=== PATIENT | female | born 1995 | race Caucasian/White ===

== ENCOUNTER 2022-03-12 17:46 | Emergency (ER) | payer OTHER, SELFPAY ==
--- NOTE | 2022-03-12 | ECG_ITS ---
Test Reason : palpatations Blood Pressure : / mmHG Vent. Rate : 118 BPM Atrial Rate : 118 BPM P-R Int : 154 ms QRS Dur : 078 ms QT Int : 332 ms P-R-T Axes : 044 034 013 degrees QTc Int : 465 ms Sinus tachycardia Cannot rule out Anterior infarct , age undetermined - could be related to body habitus and lead placement. Abnormal ECG No previous ECGs available Referred By: Generic ED Physician Electronically Signed By:SADE MASSEY
[2022-03-12 18:09] VITALS: BP 151/99; PULSE 127; RESP 16; TEMP 36.6; O2SAT 98; BMI 33.5
[2022-03-12 18:38] LABS: MANUAL DIFF FLAG NO
[2022-03-12 18:46] LABS: Appearance Urine CLEAR; Color Urine YELLOW; Glucose Urine UA NEG (NEG); Leukocyte Esterase Urine NEG (NEG); Nitrite Urine NEG (NEG); PH 6.5 (5.0-8.0); UACC Culture Trigger NO; Urine Blood 3+ (NEG); Urine Ketones NEG (NEG); Urine Protein NEG (NEG-TRACE)
[2022-03-12 18:48] LABS: Basophils Percent Auto 0.3 % (0-2); Eosinophils Percent Auto 0.5 % (0-4); Hematocrit 38.2 % (37.0-47.0); Imm Gran Abs Auto 0.02 X10*3/uL (0.00-0.03); Imm Gran Pct Auto 0.3 % (0.0-0.4); Lymphocytes Percent Auto 29.7 % (20-40); Mean Corpuscular Hemoglobin 30.5 pg (27.0-33.0); Mean Corpuscular Volume 89.7 fL (80.0-98.0); Mean Platelet Volume 8.8 fL (9.4-12.3); Monocytes Absolute Auto 0.6 X10*3/uL (0.1-1.2); Monocytes Percent Auto 8.5 % (2-11); Neutrophils Percent Auto 60.7 % (45-73); Platelet Count 212 X10*3/uL (160-400); Red Blood Count 4.26 X10*6/uL (4.20-5.50); Red Cell Distribution Width 12.1 % (11.0-16.0); White Blood Count 6.6 X10*3/uL (4.8-10.8)
[2022-03-12 18:55] LABS: Ethanol 81 mg/dL
[2022-03-12 18:56] LABS: Anion Gap 15 (12-20); Blood Urea Nitrogen 8 mg/dL (9-16); Calcium 8.8 mg/dL (8.4-10.2); Carbon Dioxide 23 mmol/L (22-29); Chloride 103 mmol/L (96-108); Creatinine Clr Calc Pharmacy 115.7; Estimated Glomerular Filt Rate > 60; Glucose Random 102 mg/dL (60-115); Potassium 3.9 mmol/L (3.3-5.1); Sodium 137 mmol/L (135-145)
[2022-03-12 18:57] LABS: Amphetamine Screen Urine Not Detected (Not Detect); Barbiturates, Urine Not Detected (Not Detect); Benzodiazepines Screen Urine Not Detected (Not Detect); Cannabinoid Screen Urine Not Detected (Not Detect); Cocaine Screen Urine Not Detected (Not Detect); Fentanyl, urine Not Detected (Not Detect); Opiate Screen Urine Not Detected (Not Detect); Phencyclidine Screen Urine Not Detected (Not Detect)
[2022-03-12 19:02] LABS: Bacteria Urine 1+ /LPF; Squamous Epithelial Cell Urine TRACE /LPF; WBC Urine 0-2 /HPF (0-4)
[2022-03-12 19:05] LABS: UPreg QC Valid YES; Urine Pregnancy NEGATIVE (NEGATIVE)
[2022-03-12 19:53] VITALS: BP 166/94; PULSE 111; RESP 17; O2SAT 97
--- NOTE | 2022-03-12 19:55 | ED.ALCOHOL ---
HPI - Alcohol General Chief Complaint: ETOH/Substance Use Stated Complaint: alcohol withdrawl Source: patient Mode of arrival: ambulatory Limitations: no limitations History of Present Illness HPI narrative: 26-year-old female presents for alcohol withdrawal symptoms. States that she drinks about a sleeve of nips per day. She does have history of EtOH seizures in the past. MD complaint: alcohol intoxication and alcohol withdrawal Last drink: Hours (ago) Amount of alcohol consumed: Last drink 02:00 Chronic alcohol use: Yes Previous visits for alcohol intoxication: Yes Recent trauma: No Associated symptoms: tremors Treatments prior to arrival: none Related Data Previous Rx's Medication Instructions Recorded disulfiram 250 mg tablet 250 mg PO DAILY #30 tab 03/12/22 lorazepam 2 mg tablet (Ativan) 2 mg PO TID PRN 3 Days #9 tab 03/12/22 Allergies Allergy/AdvReac Type Severity Reaction Status Date / Time No Known Allergies Allergy Verified 03/12/22 18:13 Review of Systems Review of Systems: Constitutional: No Fever, No Chills ENT/Mouth: No sore throat, No Rhinorrhea Eyes: No Eye Pain, No Swelling, No Redness Cardiovascular: No Chest Pain, No SOB Respiratory: No Cough, No Sputum Gastrointestinal: No Nausea, No Vomiting, No Diarrhea, No abdominal Pain Genitourinary: No Dysuria, No Hematuria Musculoskeletal: No joint pain, No Myalgias, No Joint Swelling Skin: No Skin Lesions, No rash Neuro: No Weakness, No Numbness, No Loss of Consciousness, No Dizziness, No Headache Psych: Positive alcohol withdrawal, Positive Anxiety, No Depression, No SI/HI/AH/VH Heme/Lymph: No Bruising, No Bleeding,No Lymphadenopathy Endocrine: No Polyuria, No Polydipsia Yes all other systems are reviewed and are negative [facility] Past Medical History Attestation statement: The following information was validated with the patient. Source: old records reviewed Medical History No known health problems Social History Social History Advance Directives: No Advance Directives Information Provided: No Physical Exam ED Vital Signs: Vital Signs - 24 hr 03/12/22 18:09 03/12/22 19:53 03/12/22 20:07 Temperature 97.8 F Pulse Rate 127 H 111 H 120 H Respiratory Rate 16 17 28 H Blood Pressure 151/99 H 166/94 H 166/94 H Pulse Oximetry 98 97 99 03/12/22 20:25 03/12/22 21:09 Temperature Pulse Rate 117 H 116 H Respiratory Rate 20 22 H Blood Pressure 147/92 H 140/92 H Pulse Oximetry 98 97 BMI result Body Mass Index 33.5 Appearance: Alert. Oriented X3. Moderate distress. Tremors. Eyes: Pupils equal, round and reactive to light. Sclera nonicteric. ENT: Pharynx normal. Moist mucous membranes. Neck: Normal inspection. Neck supple. CVS: Normal heart rate and rhythm. Pulses normal. Respiratory: No respiratory distress. Breath sounds normal. Abdomen: Soft and nontender. Skin: Skin warm and dry. Normal skin color. Normal skin turgor. Extremities: No lower extremity edema. Gait well-balanced well coordinated. Neuro: No motor deficit. No sensory deficit. Cranial nerves 2-12 intact. Course Course Course Narrative: 26-year-old female presents requesting assistance stop drinking. Has had alcohol withdrawal seizures in the past. Was hospitalized in January for EtOH withdrawals. She is not interested in attending a detox program, states that is too traumatizing for her. CIWA score is 9 at time, will order Ativan 2 mg p.o.. Will discuss plan with volleyball assistant coach for possible outpatient treatment programs. 20:01 discussion with volleyball assistant coach, they will discuss options with patient. 20:59 plan is to discharge home, patient does have outpatient information for detox. Patient does understand medication regimen, understands that if symptoms persist or worsen that she should return to the emergency department. Patient verbalized understanding of and agrees to plan of care to discharge home. Verbalized understanding of signs and symptoms indicating need for emergent intervention MDM - Alcohol Differential Diagnosis Differential diagnosis: Likely alcohol dependence and alcohol withdrawal syndrome Medical Records Attestation: I reviewed the patient's medical records. Lab Data Attestation: I reviewed the patient's lab results. Result diagrams: 03/12/22 18:31 03/12/22 18:31 Labs: Lab Results 03/12/22 03/12/22 03/12/22 Range/Units 18:31 18:31 18:31 WBC 6.6 (4.8-10.8) X10*3/uL RBC 4.26 (4.20-5.50) X10*6/uL Hgb 13.0 (12.0-16.0) g/dl Hct 38.2 (37.0-47.0) % MCV 89.7 (80.0-98.0) fL MCH 30.5 (27.0-33.0) pg MCHC 34.0 (31.0-35.0) g/dl RDW 12.1 (11.0-16.0) % Plt Count 212 (160-400) X10*3/uL MPV 8.8 L (9.4-12.3) fL Immature Gran % (Auto) 0.3 (0.0-0.4) % Neut % (Auto) 60.7 (45-73) % Lymph % (Auto) 29.7 (20-40) % Victoria % (Auto) 8.5 (2-11) % Eos % (Auto) 0.5 (0-4) % Baso % (Auto) 0.3 (0-2) % Lymph # (Auto) 2.0 (1.2-4.9) X10*3/uL Victoria # (Auto) 0.6 (0.1-1.2) X10*3/uL Eos # (Auto) 0.0 (0.0-0.4) X10*3/uL Baso # (Auto) 0.0 (0.0-0.2) X10*3/uL Abs Immat Gran (auto) 0.02 (0.00-0.03) X10*3/uL Absolute Neuts (auto) 4.0 (2.0-8.3) x10*3/uL Absolute Nucleated RBC 0.000 (0.0-0.012) X10*3/uL Nucleated RBC % (auto) 0.0 (0.0-0.2) /100WBC Sodium 137 (135-145) mmol/L Potassium 3.9 (3.3-5.1) mmol/L Chloride 103 (96-108) mmol/L Carbon Dioxide 23 (22-29) mmol/L Anion Gap 15 (12-20) BUN 8 L (9-16) mg/dL Creatinine 0.72 (0.5-1.4) mg/dL Estim Creat Clear Calc 115.7 Estimated GFR > 60 Random Glucose 102 (60-115) mg/dL Calcium 8.8 (8.4-10.2) mg/dL Urine Color Urine Appearance Urine pH (5.0-8.0) Ur Specific [place] (1.005-1.025) Urine Protein (NEG-TRACE) MG/DL Urine Glucose (UA) (NEG) MG/DL Urine Ketones (NEG) MG/DL Urine Blood (NEG) Urine Nitrite (NEG) Ur Leukocyte Esterase (NEG) Urine RBC (0) /HPF Urine WBC (0-4) /HPF Ur Squamous Epith Cells /LPF Urine Bacteria /LPF Urine Test (NEGATIVE) Urine Opiates Screen (Not Detect) Urine Fentanyl Screen (Not Detect) Ur Barbiturates Screen (Not Detect) Ur Phencyclidine Scrn (Not Detect) Ur Amphetamines Screen (Not Detect) U Benzodiazepines Scrn (Not Detect) Urine Cocaine Screen (Not Detect) U Marijuana (THC) Screen (Not Detect) Ethyl Alcohol 81 mg/dL 03/12/22 03/12/22 03/12/22 Range/Units 18:31 18:31 18:31 WBC (4.8-10.8) X10*3/uL RBC (4.20-5.50) X10*6/uL Hgb (12.0-16.0) g/dl Hct (37.0-47.0) % MCV (80.0-98.0) fL MCH (27.0-33.0) pg MCHC (31.0-35.0) g/dl RDW (11.0-16.0) % Plt Count (160-400) X10*3/uL MPV (9.4-12.3) fL Immature Gran % (Auto) (0.0-0.4) % Neut % (Auto) (45-73) % Lymph % (Auto) (20-40) % Victoria % (Auto) (2-11) % Eos % (Auto) (0-4) % Baso % (Auto) (0-2) % Lymph # (Auto) (1.2-4.9) X10*3/uL Victoria # (Auto) (0.1-1.2) X10*3/uL Eos # (Auto) (0.0-0.4) X10*3/uL Baso # (Auto) (0.0-0.2) X10*3/uL Abs Immat Gran (auto) (0.00-0.03) X10*3/uL Absolute Neuts (auto) (2.0-8.3) x10*3/uL Absolute Nucleated RBC (0.0-0.012) X10*3/uL Nucleated RBC % (auto) (0.0-0.2) /100WBC Sodium (135-145) mmol/L Potassium (3.3-5.1) mmol/L Chloride (96-108) mmol/L Carbon Dioxide (22-29) mmol/L Anion Gap (12-20) BUN (9-16) mg/dL Creatinine (0.5-1.4) mg/dL Estim Creat Clear Calc Estimated GFR Random Glucose (60-115) mg/dL Calcium (8.4-10.2) mg/dL Urine Color YELLOW Urine Appearance CLEAR Urine pH 6.5 (5.0-8.0) Ur Specific [place] 1.010 (1.005-1.025) Urine Protein NEG (NEG-TRACE) MG/DL Urine Glucose (UA) NEG (NEG) MG/DL Urine Ketones NEG (NEG) MG/DL Urine Blood 3+ H (NEG) Urine Nitrite NEG (NEG) Ur Leukocyte Esterase NEG (NEG) Urine RBC 1-4 (0) /HPF Urine WBC 0-2 (0-4) /HPF Ur Squamous Epith Cells TRACE /LPF Urine Bacteria 1+ /LPF Urine Test NEGATIVE (NEGATIVE) Urine Opiates Screen Not Detected (Not Detect) Urine Fentanyl Screen Not Detected (Not Detect) Ur Barbiturates Screen Not Detected (Not Detect) Ur Phencyclidine Scrn Not Detected (Not Detect) Ur Amphetamines Screen Not Detected (Not Detect) U Benzodiazepines Scrn Not Detected (Not Detect) Urine Cocaine Screen Not Detected (Not Detect) U Marijuana (THC) Screen Not Detected (Not Detect) Ethyl Alcohol mg/dL ECG Data ECG #1: Attestation: I personally reviewed and interpreted this ECG as follows: ECG interpretation date: 03/12/22 ECG interpretation time: 18:13 Prior ECG tracings: not available for review Interpretation: Vent. rate 118 BPM ND interval 154 ms QRS duration 78 ms QT/QTc 332/465 ms P-R-T axes 44 34 13 Sinus tachycardia Cannot rule out Anterior infarct , age undetermined Abnormal ECG No previous ECGs available Discharge Plan Discharge Clinical Impression: Alcohol withdrawal syndrome Patient Disposition: Home, Self-Care Instructions: Alcohol Withdrawal (ED) Additional Instructions: Please follow-up with outpatient detox. Thank you for choosing this emergency department for evaluation. Please follow-up with primary care physician as needed. Return to the emergency department for any new, concerning, or worsening symptoms. Prescriptions: New disulfiram 250 mg tablet 250 mg PO DAILY Qty: 30 0RF lorazepam [Ativan] 2 mg tablet 2 mg PO TID PRN (Reason: alcohol withdrawal) 3 Days Qty: 9 0RF Interventions: ED Discharge Assessment Last Done: 03/12/22 21:17 Discharge Date/Time: 03/12/22 21:20
[2022-03-12] MEDS: LORazepam 1 MG TABLET 2 MG PO ×2 (20:05→21:11)
[2022-03-12 20:07] VITALS: BP 166/94; PULSE 120; RESP 28; O2SAT 99
--- NOTE | 2022-03-12 20:23 | PC.NURSE ---
report received from DOLLY Hancock. pt is alert and oriented. pt on continuos cardiac monitoring. denies any chest pain or sob.
[2022-03-12 20:25] VITALS: BP 147/92; PULSE 117; RESP 20; O2SAT 98
--- NOTE | 2022-03-12 20:58 | MHC.RECOVSUP ---
? Reason for consult:Recovery Support o Current location: ED16? o Identified substance use concern:AUD ? - Withdrawal - Support ? ?Intervention: o MAT started or to be started o Community resources provided o Harm reduction discussion ? Plan: o Referral to [facility] ? Additional information: A patient consultation with Nurse Practitioner, Kisha Gtz was conducted before point of contact was made. Bridget is a 26 year old female with a history of AUD, living with her parents and currently drinking a half a gallon of hard liquor daily. Candi shafferrena was in the room, I kindly asked him to give us privacy and he obliged. Bridget then described her untreated alcoholism as anxiety driven filled with shame and is uncontrollable once she picks up that first drink. Patient lost her job during the pandemic and her drinking increased. Bridget is experiencing tremors at this time along with anxiety, physically has no energy and disclosed that she had a seizure last year from detoxing without medical assistance. Patient isn't interested in entering a detox or treatment facility due to a past experience at [facility] so we discussed her options and narrowed down a few solutions along with strategies for harm reduction. Bridget decided on a referral for [employer] with [facility], a referral for [facility] and a meeting list for AA in the [place] area including community resources to [facility]. A follow up will be made from the referral of services.
[2022-03-12 21:09] VITALS: BP 140/92; PULSE 116; RESP 22; O2SAT 97
== END 2022-03-12 21:20 | disposition home or self-care (01) ==
PROVIDERS: Emergency Provider Emergency Medicine
DX: F10.239 Alcohol dependence with withdrawal, unspecified (principal); Y90.9 Presence of alcohol in blood, level not specified
CPT/HCPCS: 36415; 80048; 80307; 81001; 81025; 82077; 85025; 93005; 99284; 99285

== ENCOUNTER 2022-06-10 08:25 | Outpatient (REF) | payer OTHER, SELFPAY ==
[2022-06-10 11:39] LABS: Monotest Negative (Negative)
== END 2022-06-10 08:26 | disposition home or self-care (01) ==
LOC: HO.HMGCLDS 08:25
PROVIDERS: Visit Provider Physician Assistant
DX: J02.9 Acute pharyngitis, unspecified (principal); T78.40XA Allergy, unspecified, initial encounter
CPT/HCPCS: 36415; 86308

== ENCOUNTER 2023-09-25 08:29 | Outpatient (REF) | payer OTHER, SELFPAY ==
[2023-09-25 11:59] LABS: Alanine Aminotransferase 160 U/L (0-31); Albumin Level 4.4 g/dL (3.5-5.0); Alkaline Phosphatase 63 U/L (39-117); Aspartate Amino Transferase 165 U/L (5-31); Bilirubin Direct 0.2 mg/dL (0.0-0.5); Bilirubin Total 0.3 mg/dL (0.0-1.0); Total Protein 7.3 g/dL (6.5-8.0)
[2023-09-25 12:02] LABS: T4 Thyroxine 8.8 ug/dL (4.5-12.0); Thyroid Stimulating Hormone 1.69 uIU/mL (0.32-4.0)
[2023-09-26 11:18] LABS: Triiodothyronine T3 Total 180 ng/dL (76-181)
== END 2023-09-25 08:30 | disposition home or self-care (01) ==
LOC: HO.HMGCLDS 08:29
PROVIDERS: PCP Internal Medicine; Visit Provider Physician Assistant
DX: Z13.89 Encounter for screening for other disorder (principal)
CPT/HCPCS: 36415; 80076; 84436; 84443; 84480

== ENCOUNTER 2025-09-17 12:46 | Inpatient (IN) | payer OTHER, SELFPAY ==
--- NOTE | ~2025-09-17 | XR_ITS ---
CLINICAL HISTORY: dyspnea Chest Radiographs, 2 views Comparison: None available Findings: No cardiomegaly. Normal mediastinal contours. No pneumothorax. No opacity. No pleural effusion. No acute findings in the upper abdomen. No acute fracture. Impression: No acute findings. This document has been electronically signed by: Desire Avelar MD on 09/18/2025 13:09:52
--- NOTE | ~2025-09-17 | CT_ITS ---
CLINICAL HISTORY: chets pain elevated ddimer CTA chest with 3-D postprocessing Comparison: CR - XR CHEST 2V - 09/18/25 12:09 EST Findings: Study quality is adequate for the diagnosis of pulmonary embolism. No pulmonary embolism. Heart size within normal limits. RV/LV ratio is normal. No calcified coronary artery disease. No aortic dissection or aneurysm. No calcified atherosclerotic disease. No lymphadenopathy. No pulmonary pathology. No pneumothorax or pleural effusion. No acute osseous or soft tissue abnormality. No acute pathology in the imaged portion of the upper abdomen. Impression: No pulmonary embolism or other acute findings. This document has been electronically signed by: Desire Avelar MD on 09/18/2025 16:33:34
[2025-09-17 12:46] VITALS: BP 132/102; PULSE 132; O2SAT 95
[2025-09-17 12:47] VITALS: BP 132/105; PULSE 128; RESP 18; TEMP 37.1; O2SAT 96; BMI 34.0
--- NOTE | 2025-09-17 12:53 | ECG_ITS ---
Test Reason : ETOH W/D Blood Pressure : */* mmHG Vent. Rate : 116 BPM Atrial Rate : 116 BPM P-R Int : 152 ms QRS Dur : 74 ms QT Int : 332 ms P-R-T Axes : 43 45 25 degrees QTcB Int : 461 ms Sinus tachycardia Otherwise normal ECG When compared with ECG of 12-Mar-2022 18:13, No significant change was found Referred By: Flores Michelle Electronically Signed By: SADE MASSEY
[2025-09-17 13:09] LABS: MANUAL DIFF FLAG NO
[2025-09-17 13:11] LABS: Hematocrit 44.7 % (37.0-47.0); Hemoglobin 15.8 g/dl (12.0-16.0); Imm Gran Abs Auto 0.02 X10*3/uL (0.00-0.03); Imm Gran Pct Auto 0.2 % (0.0-0.4); Lymphocytes Absolute Auto 2.3 X10*3/uL (1.2-4.9); Mean Corpuscular HGB Conc 35.3 g/dl (31.0-35.0); Mean Corpuscular Hemoglobin 31.3 pg (27.0-33.0); Mean Corpuscular Volume 88.5 fL (80.0-98.0); NRBC Abs Auto 0.000 X10*3/uL (0.0-0.012); NRBC Pct Auto 0.0 /100WBC (0.0-0.2); Platelet Count 264 X10*3/uL (160-400); Red Blood Count 5.05 X10*6/uL (4.20-5.50); White Blood Count 8.2 X10*3/uL (4.8-10.8)
[2025-09-17 13:13] LABS: Appearance Urine Clear; Glucose Urine UA Negative (Negative); PH 6.0 (5.0-9.0); Specific Gravity - Urine 1.010 (1.005-1.025); UMIC TRIGGER UACC YES
[2025-09-17] MEDS: diazePAM 10 MG/2 ML CARTRIDGE 5 MG IVPUSH (13:13)
[2025-09-17 13:24] LABS: Cannabinoid Screen Urine Not Detected (Not Detect)
[2025-09-17] MEDS: PHENobarbitaL sodium 130 MG/ML IM ONCE 230 MG IM (13:29)
[2025-09-17 13:38] LABS: Alanine Aminotransferase 32 U/L (0-31); Albumin Level 4.7 g/dL (3.5-5.0); Alkaline Phosphatase 79 U/L (39-117); Anion Gap 18 (12-20); Aspartate Amino Transferase 68 U/L (5-31); Blood Urea Nitrogen 8 mg/dL (9-16); Calcium 8.1 mg/dL (8.4-10.2); Carbon Dioxide 20 mmol/L (22-29); Chloride 105 mmol/L (96-108); Creatinine Clr Calc Pharmacy 134.1; Estimated Glomerular Filt Rate > 60; Magnesium 2.3 mg/dL (1.6-2.6); Potassium 4.0 mmol/L (3.3-5.1); Sodium 139 mmol/L (135-145); Total Protein 7.6 g/dL (6.5-8.0)
--- OUTSIDE RECORDS SUMMARY | 2025-09-17 13:45 | XMS_ITS | Encounter Summary ---
Author Organization [facility] Address [address] [place] [phone] Phone Care Team Providers Care Master Printer Name Role Phone Vane Henderson MD Primary Care Provider [phone] Reason for Visit * Reason Comments Med Refill Encounter Details Date Type Department Care Team ([facility] Contact Info) Description 09/05/2018 Refill [facility] [address] [place] [address] RANJEET Nicole [phone] Vane Henderson MD [address] [place], [place] [phone] Encounter for surveillance of contraceptive pills Social History Tobacco Use Types Packs/Day Years Used Date Smoking Tobacco: Former Comments:Former Smoker Comments Unknown Sex and Gender Information Value Date Recorded Sex Assigned at Not on file Legal Sex Female 6:17 PM EDT Gender Identity Not on file Sexual Orientation Straight 01/02/2021 2: 29 PM EST documented as of this encounter Plan of Treatment Not on file documented as of this encounter Visit Diagnoses Diagnosis Encounter for surveillance of contraceptive pills documented in this encounter Care Teams Master Printer Relationship Specialty Start Date End Date Vane Henderson MD PCP - General 03/25/18 documented as of this encounter
--- OUTSIDE RECORDS SUMMARY | 2025-09-17 13:45 | XMS_ITS | Encounter Summary ---
Author Organization [facility] Address [address] [place] [phone] Phone Care Team Providers Care Mailroom Coordinator Name Role Phone Vane Henderson MD Primary Care Provider [phone] Reason for Visit * Reason Comments Med Refill Encounter Details Date Type Department Care Team ([facility] Contact Info) Description 09/27/2018 Refill [facility] [address] [place] [address] RANJEET Nicole [phone] Vane Henderson MD [address] [place], [place] [phone] Encounter for surveillance of contraceptive pills Social [...] pills documented in this encounter Care Teams Mailroom Coordinator Relationship Specialty Start Date End Date Vane Henderson MD PCP - General 03/25/18 documented as of this encounter
--- OUTSIDE RECORDS SUMMARY | 2025-09-17 13:45 | XMS_ITS | Encounter Summary ---
Author Organization [facility] Address [address] [place] [phone] Phone Care Team Providers Care Dietetic Tech Name Role Phone Vane Henderson MD Primary Care Provider [phone] Reason for Visit * Reason Comments Med Refill Encounter Details Date Type Department Care Team ([facility] Contact Info) Description 05/21/2020 Refill [facility] [address] [place] [address] [place] [phone] Paul Nieto MD [address] [place] [address] [place] [phone] Anxiety with depression Social History Tobacco Use Types Packs/Day Years Used Date Smoking Tobacco: Former Smokeless Tobacco: Never Comments:Former Smoker Hunger/Food Answer Date Recorded No 01/01/2019 Stable Housing Answer Date Recorded No 11/20/2019 Transportation Concerns Answer Date Rec orded No 01/01/2019 Hazards in Home Answer Date Recorded No 01/01/2019 Financing Utilities Answer Date Recorde d No 01/01/2019 Safety at Home Answer Date Recorded No 01/01/2019 Outside Support Answer Date Recorded No 01/01/2019 Understanding Health Concerns Answer Da te Recorded No 01/01/2019 Financing Health Concerns Answer Date R ecorded No 01/01/2019 Missing School or Work Answer Date Jose rded No 01/01/2019 Comments No Sex and Gender Information Value Date Recorded Sex Assigned at Not on file Legal Sex Female 6:17 PM EDT Gender Identity Not on file Sexual Orientation Straight 01/02/2021 2: 29 PM EST documented as of this encounter Plan of Treatment Not on file documented as of this encounter Visit Diagnoses Diagnosis Anxiety with depression documented in this encounter Care Teams Dietetic Tech Relationship Specialty Start Date End Date Vane Henderson MD PCP - General 03/25/18 documented as of this encounter
--- OUTSIDE RECORDS SUMMARY | 2025-09-17 13:45 | XMS_ITS | Clinical Summary ---
Author Organization [facility] Address [address] [place] [phone] Phone Care Team Providers Care Microbiology Technician Name Role Phone Vane Hednerson MD Primary Care Provider [phone] Allergies No known active allergies Medications amLODIPine 5 MG tabletIndications:H ypertension, unspecified type Take 1 tablet (5 mg total) by mouth daily. 30 tablet 6 2 Active traZODone 50 MG tabletIndications:I nsomnia, unspecified type Take 1 tablet (50 mg total) by mouth nightly. 30 tablet 6 2 Active hydrOXYzine 25 MG tabletIndications:A nxiety with depression Take 1 tablet (25 mg total) by mouth every 6 (six) hours as needed for anxiety. 30 tablet 6 2 Active sertraline 50 MG tabletIndications:A nxiety with depression Take 1 tablet (50 mg total) by mouth once daily. 30 tablet 6 2 Active norgestimate-ethiny l estradiol (Sprintec 28) 0.25-35 MG-MCG per tabletIndications:C ounseling for control, oral contraceptives Take 1 tablet by mouth daily. 84 tablet 4 2 Active Active Problems Problem Noted Date Diagnosed Date Alcohol use 11/12/2021 Alcohol dependence with withdrawal with complica tion 11/12/2021 Depression with anxiety 11/12/2021 Concussion with no loss of consciousness 018 Overview (11/20/2018): Concussion without LOC (850.0) Onset: 03/31/2018 Added by: Elizabeth Cobos Dysthymic disorder 02/01/2013 Overview (11/20/2018): Anxiety with depression (300.4) Onset: 02/01/2013 Added by: Vane Henderson Immunizations Immunization Administration Dates Next Due DTaP 5 02/22/2003, 9,03/17/1998,02/13,1997 HPV Vaccine 9 Valent 02/27/2016,10/24/2015,08/22 Hep A, ped/adol 07/22/2014,07/06/2013 Hep B, ped/adol 04/17/1998,1997,1997 Hib (PRP-T) 02/07/1999, 8,02/13/1998,12/16 IPV 02/22/2003, 9,02/13/1998,12/16 Influenza, injectable, quadrivalent 11/22/2019 Influenza, injectable, quadr ivalent, preservative free 11/19/2018,11/06/2017,09/10/2016,08/22,07/22/2014 Influenza, injectable, trivalent 08/17/2011 Influenza, injectable, triva lent, preservative free 09/25/2013,08/08/2012 MMR 02/22/2003,10/24/1998 Meningococcal Conj (Menactra) MCV4P 07/22/2014,1 01/08/2008 Tdap 11/19/2018,11/07/2008 Varicella 11/07/2008,10/24/1998 Family History Medical History Relation Name Comments No Known Problems Father Rob No Known Problems Mother Amelia Diabetes Sister Domonique Relation Name Status Comments Father Rob Alive Mother Amelia Alive Sister Domonique Alive Social History Tobacco Use Types Packs/Day Years Used Date Smoking Tobacco: Former Smokeless Tobacco: Never Comments:Former Smoker Hunger/Food Answer Date Recorded In the last 12 months, did y ou or your family ever eat less than you felt you should because there wasn't enough money for food? No 01/15/2022 Stable Housing Answer Date Recorded Are you worried that in the next 2 months you may not have stable housing? No 01/15/2022 Transportation Concerns Answer Date Rec orded In the last 12 months, have you or your family ever had to go without healthcare because you didn't have a way to get there? No 01/15/2022 Hazards in Home Answer Date Recorded Think about the place you li ve. Do you have problems with any of the following? Pests (mice or roaches), mold, no/not working smoke detectors, water leaks, no window guards. No 2021 Financing Utilities Answer Date Recorde d In the last 12 months, has t he electric, gas, oil, or water company threatened to shut off your services in your home? No 01/15/2022 Safety at Home Answer Date Recorded Are you or your family worried about feeling saf e in your home? No 01/15/2022 Outside Support Answer Date Recorded Do you feel that you need mo re support from other people or programs to help you care for yourself or your family? No 01/15/2022 Understanding Health Concerns Answer Da te Recorded Do you need help understandi ng your or your child's healthcare needs (diagnosis, medications, plan, etc.)? No 01/15/2022 Financing Health Concerns Answer Date R ecorded In the last 12 months, was t here a time when your child needed to see a doctor or get medications or supplies but could not because of cost? No 01/15/2022 Missing School or Work Answer Date Jose rded Did you or your child miss s chool or work because of a health problem that could have been avoided? No 01/15/2022 Comments No Sex and Gender Information Value Date Recorded Sex Assigned at Not on file Legal Sex Female 6:17 PM EDT Gender Identity Not on file Sexual Orientation Straight 01/02/2021 2: 29 PM EST Last Filed Vital Signs Vital Sign Reading Time Taken Comments Blood Pressure 122/78 01/15/2022 12:46 PM EST Pulse 103 01/15/2022 12:46 PM EST Temperature 36.4 C (97.5 F) 01/15/2022 12:46 PM EST Respiratory Rate - - Oxygen Saturation 99% 02/15/2021 2:15 PM EDT Inhaled Oxygen Concentration - - Weight 77.3 kg (170 lb 6.4 oz) 01/15/2022 12:46 PM EST Height 156.8 cm (5' 1.75 ) 01/15/2022 12:[address] Body Mass Index 31.42 01/15/2022 12:46 PM EST Plan of Treatment Health Maintenance Due Date Last Done Comments Influenza Vaccines (#1) 2025 11/02/20, 11/22/2019, 11/19/2018, Additional history exists COVID-19 Vaccine ( season) 2025 DTaP,Tdap,and Td Vaccines (8 - Td or Tdap) 11/19/2028 11/19/2018, 11/07/2008, 02/22/2003, Additional history exists Hepatitis B Vaccines Completed 04/17/1998, 1997, 1997 HIB Vaccines Completed 02/07/1999, 11/1997, 02/13/1998, Additional history exists IPV Vaccines Completed 02/22/2003, 12/1998, 02/13/1998, Additional history exists MMR Vaccines Completed 02/22/2003, 10/24/1998 Varicella Vaccines Completed 11/07/2008, 10/24/1998 Hepatitis A Vaccines Completed 07/22/2014, 07/06/20 13 Meningococcal Vaccine Completed 07/22/2014, 008 HPV Vaccines Completed 02/27/2016, 06/2015, 08/22/2015 Men B Vaccine Aged Out No longer elig ible based on patient's age to complete this topic Pneumococcal Vaccine Aged Out No long er eligible based on patient's age to complete this topic Procedures * Due to [place] state law, this organization might not be sharing sensitive test results. Procedure Name Priority Date/Time Associated Diagnosis Comments CHLAMYDIA GC AMP PROBE Routine 01/15/2022 2:26 PM EST Well adult exam from Last 3 Months or Most Recently Relevant to Health Maintenance Results * Due to [place] state law, this organization might not be sharing sensitive test results. * CHLAMYDIA GC AMP PROBE (01/15/2022 2:26 PM EST) Chlamydia Trachomatis, Amplified NEGATIVE (NEG) [facility] Comment: No Chlamydia Trachomatis RNA detected in this patient's sample (REFERENCE RANGE/NORMAL VALUE: NOT DETECTED) Note: This test uses instructor watch assembly- mediated amplification method to detect rRNA from C. Trachomatis N.GONORRHOEAE AMP PROBE NEGATIVE (NEG) [facility] Comment: No Neisseria Gonorrhoeae RNA detected in this patient's sample (REFERENCE RANGE/NORMAL VALUE: NOT DETECTED) NOTE: This test uses instructor watch assembly-mediated amplification method to detect rRNA from N.Gonorrhoeae. A negative result does not preclude infection. In the case of a negative urine result, testing of an endocervical(female) or urethral (male) specimen is recommended if there is high clinical suspicion of infection. Due to very high sensitivity of Nucleic Acid Amplification Test, false positive results may occur. Therefore, specimen handling is extremely important. In patients in whom the disease is unlikely, additional sample for testing should be considered after an initial positive result. The performance characteristics of this test have not been evaluated in children. The Aptima Combo2 assay is not intended for the evaluation of suspected sexual abuse or for other medico-legal indications. The ordering provider should assess if the patient had consensual sex without risk of sexual abuse. Consult the [facility] if needed. Contact phone number . Therapeutic failure or success cannot be determined with the Aptima Combo2 assay since nucleic acid may persist following appropriate antimicrobial therapy. The Centers for Disease Control and Prevention (CDC) recommends confirmatory retesting using culture or a different nucleic acid amplification test when positive results occur, if indicated. CHLAM/GC AMP PROBE SPEC TYPE VAGINAL SPECIMEN [facility] Comment: Testing performed or reported by [facility], a Service of [facility], [facility] [place] [address] Damian Montoya MD, Hub Bander [facility]# [id number] Swab (Vagina) 01/15/2022 2:2 6 PM EST 01/15/2022 9:28 PM EST us Vane Henderson MD LAB MICROBIOLOGY - GENERAL ORDER ERIC Final Result [facility] from Last 3 Months or Most Recently Relevant to Health Maintenance Care Teams Microbiology Technician Relationship Specialty Start Date End Date Vane Henderson MD PCP - General 03/25/18
--- OUTSIDE RECORDS SUMMARY | 2025-09-17 13:45 | XMS_ITS | Encounter Summary ---
Author Organization [facility] Address [address] [place] [phone] Phone Care Team Providers Care Bilingual Hr Generalist Name Role Phone Vane Henderson MD Primary Care Provider [phone] Reason for Visit * Reason Comments Med Refill Encounter Details Date Type Department Care Team ([facility] Contact Info) Description 03/10/2021 Refill [facility] [address] [place] [address] [place] Nicole [address] Vane Henderson MD [address] [place], [place] [phone] Insomnia, unspecified type Social History Tobacco Use Types Packs/Day Years Used Date Smoking Tobacco: Former Smokeless Tobacco: Never Comments:Former Smoker Hunger/Food Answer Date Recorded In the last 12 months, did y ou or your family ever eat less than you felt you should because there wasn't enough money for food? No 12/31/2020 Stable Housing Answer Date Recorded Are you worried that in the next 2 months you may not have stable housing? No 12/31/2020 Transportation Concerns Answer Date Rec orded In the last 12 months, have you or your family ever had to go without healthcare because you didn't have a way to get there? No 12/31/2020 Hazards in Home Answer Date Recorded Think about the place you li ve. Do you have problems with any of the following? Pests (mice or roaches), mold, no/not working smoke detectors, water leaks, no window guards. No 2020 Financing Utilities Answer Date Recorde d In the last 12 months, has t he electric, gas, oil, or water company threatened to shut off your services in your home? No 12/31/2020 Safety at Home Answer Date Recorded Are you or your family worried about feeling saf e in your home? No 12/31/2020 Outside Support Answer Date Recorded Do you feel that you need mo re support from other people or programs to help you care for yourself or your family? No 12/31/2020 Understanding Health Concerns Answer Da te Recorded Do you need help understandi ng your or your child's healthcare needs (diagnosis, medications, plan, etc.)? No 12/31/2020 Financing Health Concerns Answer Date R ecorded In the last 12 months, was t here a time when your child needed to see a doctor or get medications or supplies but could not because of cost? No 12/31/2020 Missing School or Work Answer Date Jose rded Did you or your child miss s chool or work because of a health problem that could have been avoided? No 12/31/2020 Comments No Sex and Gender Information Value Date Recorded Sex Assigned at Not on file Legal Sex Female 6:17 PM EDT Gender Identity Not on file Sexual Orientation Straight 01/02/2021 2: 29 PM EST documented as of this encounter Miscellaneous Notes * Telephone Encounter - Haily Garza MA - 03/10/2021 7:35 AM EDT [facility] 01/02/[address] Cifuentes's absence. documented in this encounter Plan of Treatment Not on file documented as of this encounter Visit Diagnoses Diagnosis Insomnia, unspecified type documented in this encounter Care Teams Bilingual Hr Generalist Relationship Specialty Start Date End Date Vane Henderson MD PCP - General 03/25/18 documented as of this encounter
--- OUTSIDE RECORDS SUMMARY | 2025-09-17 13:45 | XMS_ITS | Clinical Summary ---
Author Organization [address] Address [address] [place] [phone] Phone Care Team Providers Care Pcb Design Engineer Name Role Phone ManJean moulton Primary Care Provider [phone] Social History Tobacco Use Types Packs/Day Years Used Date Smoking Tobacco: Never Assessed Comments Unknown Sex and Gender Information Value Date Recorded Sex Assigned at Not on file Legal Sex Female 9:13 PM EST Gender Identity Not on file Sexual Orientation Not on file Plan of Treatment Health Maintenance Due Date Last Done Comments Pneumococcal Vaccine: Pediatrics (0 to 5 Years) and At-Risk Patients (6 to 49 Years) (1 of 2 - PCV) 2016 Cervical Cancer Screening: Pap Smear 2018 HIV Screening 12/12/2023 Hepatitis C Screening 12/12/2023 Social Influencers of Health Screening 12/12/2023 Depression Screening 11/17/2024 COVID-19 Vaccine ( season) 2025 04/09/2022 Influenza Vaccine (#1) 2025 , 11/22/2019, 11/19/2018, Additional history exists DTaP,Tdap,and Td Vaccines (8 - Td or Tdap) 11/19/2028 11/19/2018, 11/07/2008, 02/22/2003, Additional history exists Cholesterol Screening (Lipid Panel) 03/04/2030 03/04/2025 RSV Immunization Adult Patients (1 - 1-dose 75+ series) 2072 Hepatitis B Vaccines Completed 04/17/1998, 1997, 1997 HIB Vaccines Completed 02/07/1999, 11/1997, 02/13/1998, Additional history exists IPV Vaccines Completed 02/22/2003, 12/1998, 02/13/1998, Additional history exists MMR Vaccines Completed 02/22/2003, 10/24/1998 Varicella Vaccines Completed 11/07/2008, 10/24/1998 Hepatitis A Vaccines Completed 07/22/2014, 07/06/20 13 Meningococcal ACWY Vaccine Completed 07/22/2014, HPV Vaccines Completed 02/27/2016, 06/2015, 08/22/2015 Meningococcal B Vaccine Aged Out No l onger eligible based on patient's age to complete this topic RSV Immunization Patients Under 20 months Aged Out No longer eligible based on patient's age to complete this topic Procedures Procedure Name Priority Date/Time Associated Diagnosis Comments LIPID PANEL WITH REFLEX TO DIRECT LDL Routine 03/04/2025 2:36 PM EDT Laboratory tests ordered as part of a complete physical exam (CPE) AA (alcohol abuse) BMI 31.0-31.9,adult from Last 3 Months or Most Recently Relevant to Health Maintenance Results * Lipid panel with reflex to direct LDL (03/04/2025 2:36 PM EDT) Cholesterol 168 0 - 200 mg/dL LAB CHEMISTRY METHOD 03/04/2025 8:01 PM [facility] Triglycerides 119 0 - 150 mg/dL LAB CHEMISTRY METHOD 03/04/2025 8:01 PM [facility] HDL 55 >=40 mg/dL LAB CHEMISTRY METHOD 03/04/2025 8:01 PM [facility] LDL Calculated 89 0 - 100 mg/dL LAB CHEMISTRY METHOD 03/04/2025 8:01 PM [facility] VLDL Cholesterol Jose Luis 23.8 mg/dL LAB CHEMISTRY METHOD 03/04/2025 8:01 PM [facility] Non HDL Chol. (LDL+VLDL) 113 <145 mg/dL LAB CHEMISTRY METHOD 03/04/2025 8:01 PM [facility] Chol/HDL Ratio 3.1 0.0 - 4.4 LAB CHEMISTRY METHOD 03/04/2025 8:01 PM EDT [facility] Blood Venous blood specimen / Unknown Venipuncture / Unknown 03/04/2025 2:36 PM EDT 03/04/2025 2:36 PM EDT us Sinan Marcial LAB BLOOD ORDERABLES Final Resul t [facility] [address] [place] [address], from Last 3 Months or Most Recently Relevant to Health Maintenance Insurance [facility] [employer] [facility] PLAN Care Teams Pcb Design Engineer Relationship Specialty Start Date End Date Jean Casillas DO [address] [place] [phone] PCP - General 04/26/23
--- OUTSIDE RECORDS SUMMARY | 2025-09-17 13:45 | XMS_ITS | Encounter Summary ---
Author Organization [facility] Address [address] [place] [phone] Phone Care Team Providers Care Insulation Inspector Name Role Phone Vane Henderson MD Primary Care Provider [phone] Reason for Visit * Reason Comments Med Refill Encounter Details Date Type Department Care Team ([facility] Contact Info) Description 04/20/2020 Refill [facility] [address] [place] [address] [place]JEET Nicole [phone] Vane Henderson MD [address] [place], [place] [phone] Insomnia, unspecified type Social History Tobacco Use [...] encounter Miscellaneous Notes * Telephone Encounter - Vane Henderson MD - 04/24/2020 12:26 PM EDT Saw pt for vv today for med followup, refilled at that time. * Telephone Encounter - Elizabeth Cobos MA - 04/20/2020 1:44 PM EDT Last pe 11/22/2019 Med check booke for 04/24/2020 @9:30 am documented in this encounter Plan of Treatment Not on file documented as of this encounter Visit Diagnoses Diagnosis Insomnia, unspecified type documented in this encounter Care Teams Insulation Inspector Relationship Specialty Start Date End Date Vane Henderson MD PCP - General 03/25/18 documented as of this encounter
--- OUTSIDE RECORDS SUMMARY | 2025-09-17 13:45 | XMS_ITS | Clinical Summary ---
Author Organization [facility] Address [address] [place] [address] Care Team Providers Care Crop Farm Helper Name Role Phone Unavailable Primary Care Provider Unavailabl e Allergies No known active allergies Medications venlafaxine (EFFEXOR) 75 mg tablet Take 75 mg by mouth 2 times a day. Active carvediloL (COREG) 3.125 mg tablet Take 3.5 mg by mouth 2 times a day with meals. Active traZODone (DESYREL) 50 mg tablet Take 50 mg by mouth nightly. Active LORazepam (ATIVAN) 0.5 mg tablet Take 0.5 mg by mouth every 6 hours as needed for anxiety. Active busPIRone (BUSPAR) 10 mg tablet Take 10 mg by mouth 2 times a day. Active Social History Tobacco Use Types Packs/Day Years Used Date Smoking Tobacco: Every Day Cigarettes Smokeless Tobacco: Never Tobacco Cessation:Ready to Q uit: Not Asked; Counseling Given: Not Answered Alcohol Use Standard Drinks/Week Comments Yes 20 (1 standard drink = 0.6 oz pu re alcohol) Comments Unknown Sex and Gender Information Value Date Recorded Sex Assigned at Female 06/16/2024 11:04 PM EDT Legal Sex Female 8:54 PM EDT Gender Identity Female 06/16/2024 11:04 PM EDT Sexual Orientation Not on file Last Filed Vital Signs Vital Sign Reading Time Taken Comments Blood Pressure 161/104 06/17/2024 8:30 AM EDT Pulse 101 06/17/2024 8:30 AM EDT Temperature 36.8 C (98.3 F) 06/17/2024 8:30 AM EDT Respiratory Rate 18 06/17/2024 8:30 AM EDT Oxygen Saturation 100% 06/17/2024 8:30 AM EDT Inhaled Oxygen Concentration - - Weight 88.5 kg (195 lb) 06/16/2024 9:04 PM EDT Height 154.9 cm (5' 1 ) 06/16/2024 9:04 PM EDT Body Mass Index 36.84 06/16/2024 9:04 PM EDT Plan of Treatment Health Maintenance Due Date Last Done Comments HIV Screening 1997 Hepatitis C Screening 1997 Pap Smear 1997 Pneumococcal Vaccine: Pediat corby (0-5 Years) and At-Risk Patients (6-50 Years) (1 of 2 - PCV) 2016 Alcohol/Substance Use Screening 11/17/2024 Depression Screening and Follow-Up 11/17/2024 Social Drivers of Health Gertrude ual Screening 11/17/2024 COVID-19 Vaccine (2 - 2024-2 6 season) 2025 04/09/2022 Influenza Vaccine (#1) 2025 , 11/22/2019, 11/19/2018, Additional history exists DTaP,Tdap,and Td Vaccines (8 - Td or Tdap) 11/19/2028 11/19/2018, 11/07/2008, 02/22/2003, Additional history exists RSV Vaccine (60+ years old a nd patients) (1 - 1-dose 75+ series) 2072 Hepatitis B Vaccines Completed 04/17/1998, 1997, 1997 Varicella Vaccines Completed 11/07/2008, 10/24/1998 Insurance [facility] MEDICAID
--- OUTSIDE RECORDS SUMMARY | 2025-09-17 13:45 | XMS_ITS | Encounter Summary ---
Author Organization [facility] Address [address] [place] [phone] Phone Care Team Providers Care Last Repairer Name Role Phone Vane Henderson MD Primary Care Provider [phone] Encounter Details Date Type Department Care Team (Late st Contact Info) Description 08/17/2011 Conversion Encounter [facility] [address] [facility] [place] [phone] Social History Tobacco Use Types Packs/Day Years [...] documented as of this encounter Visit Diagnoses Not on filedocumented in this encounter Care Teams Last Repairer Relationship Specialty Start Date End Date Vane Henderson MD PCP - General 03/25/18 documented as of this encounter
--- NOTE | 2025-09-17 14:03 | ED_ITS ---
HPI - Alcohol General Chief Complaint: ETOH/Substance Use Stated Complaint: ALCOHOL WTHDRAWAL,N/V,CHEST DISCOMFORT PER EMS Time Seen by Provider: 09/17/25 12:52 Source: patient Mode of arrival: ambulatory Limitations: no limitations History of Present Illness ED Provider: Dr. Flores Michelle HPI narrative: 29-year-old female with a history of alcohol use disorder, anxiety and depression presenting with request for alcohol detox. States that she drinks about 2 sleeves of vodka nips per day. Last drink was about an hour and a half prior to arrival. Admits to history of alcohol withdrawal seizures when she does not drink. Has a attempted detox previously without success. Denies intent of self-harm. Denies illness including fever, cough or cold-type symptoms, chest pain, difficulty breathing, abdominal pain, bowel changes or urinary complaints. She does have some vomiting associated with her drinking. No hematemesis. Related Data Home Medications ?Medication ?Instructions ?Recorded ?Confirmed trazodone 50 mg tablet 50 mg PO BEDTIME 06/10/22 sertraline 100 mg tablet See Rx Instructions PO DAILY 06/27/22 Allergies Allergy/AdvReac Type Severity Reaction Status Date / Time No Known Allergies Allergy Verified 09/17/25 12:49 Review of Systems 2 Review of Systems: As per HPI, full review of systems performed and negative but for the above mentioned pertinent positives and negatives. [facility] Past Medical History Medical History No known health problems Social History Social History Alcohol intake: current Alcohol intake frequency: 3 or more drinks per day Alcohol type: hard liquor Patient Tobacco Use Status: Never used Tobacco Smoked in Last 30 Days: Yes Use of substances other than those prescribed or required for medical reasons: No Advance Directives: No Advance Directives Information Provided: Yes Physical Exam ED Exam Exam: GENERAL: Ill-Appearing, appears uncomfortable. SKIN: Normal skin color for ethnicity, warm, dry, no rashes noted. HEENT: Normocephalic, atraumatic, no stridor, dry mucous membranes, dentition intact, EOMI, PERRLA. NECK: Soft, supple, full ROM, midline structures nontender, no step-offs, no deformities, no lymphadenopathy. CHEST: Heart regular tachycardia, no murmurs, symmetric chest rise and fall. PULMONARY: Clear to auscultation bilaterally, diminished at the bases, no labored breathing, no wheezes/rhales/rhonchi. ABDOMINAL: Soft, nondistended, nontender, positive bowel sounds in all quadrants. : Deferred. MUSCULOSKELETAL: Normal tone, full range of motion, no deformities, no peripheral edema. NEURO: Alert and oriented x3, CN II through XII intact, equal strength and sensation bilateral upper and lower extremities, no focal neurologic deficits, tremulousness. PSYCHIATRIC: Flat affect, fluid speech, good eye contact and appropriate demeanor. Vital Signs: Vital Signs - 24 hr 09/17/25 12:47 Temperature 98.7 F Pulse Rate 128 H Respiratory Rate 18 Blood Pressure 132/105 H Pulse Oximetry 96 Oxygen Delivery Method Room Air BMI result Body Mass Index 34.0 Medical Decision Making Medical Decision Making MDM Narrative: Patient presents with request for alcohol detox. Differential diagnosis includes alcohol intoxication, alcohol withdrawal, substance use disorder, decompensated mental illness including depression and anxiety, among many others. We will initiate broad-spectrum workup, phenobarbital protocol for alcohol withdrawal. She is tachycardic on arrival to the emergency department, tremulous. She has a history of withdrawal seizures so we will try to avoid that. Admitted in guarded condition. Differential Diagnosis Differential Diagnoses: The differential diagnosis associated with the presentation includes (As above) Admission/Observation Consideration of admission/observation: Escalation of care including admission/observation considered Consult Healthcare Provider Management of the patient was discussed with: Hospitalist Lab Data [facility] Lab Attestation statement: I reviewed the patient's lab results. 09/17/25 13:04 09/17/25 13:04 Labs: Lab Results 09/17/25 09/17/25 Range/Units 13:02 13:04 WBC 8.2 (4.8-10.8) X10*3/uL RBC 5.05 (4.20-5.50) X10*6/uL Hgb 15.8 D (12.0-16.0) g/dl Hct 44.7 (37.0-47.0) % MCV 88.5 (80.0-98.0) fL MCH 31.3 (27.0-33.0) pg MCHC 35.3 H (31.0-35.0) g/dl RDW 12.3 (11.0-16.0) % Plt Count 264 (160-400) X10*3/uL MPV 8.7 L (9.4-12.3) fL Immature Gran % (Auto) 0.2 (0.0-0.4) % Neut % (Auto) 63.6 (45-73) % Lymph % (Auto) 27.5 (20-40) % [place] % (Auto) 8.1 (2-11) % Eos % (Auto) 0.0 (0-4) % Baso % (Auto) 0.6 (0-2) % Lymph # (Auto) 2.3 (1.2-4.9) X10*3/uL [place] # (Auto) 0.7 (0.1-1.2) X10*3/uL Eos # (Auto) 0.0 (0.0-0.4) X10*3/uL Baso # (Auto) 0.1 (0.0-0.2) X10*3/uL Abs Immat Gran (auto) 0.02 (0.00-0.03) X10*3/uL Absolute Neuts (auto) 5.2 (2.0-8.3) x10*3/uL Absolute Nucleated RBC 0.000 (0.0-0.012) X10*3/uL Nucleated RBC % (auto) 0.0 (0.0-0.2) /100WBC Sodium 139 (135-145) mmol/L Potassium 4.0 (3.3-5.1) mmol/L Chloride 105 (96-108) mmol/L Carbon Dioxide 20 L (22-29) mmol/L Anion Gap 18 (12-20) BUN 8 L (9-16) mg/dL Creatinine 0.61 (0.5-1.4) mg/dL Estim Creat Clear Calc 134.1 Estimated GFR > 60 Random Glucose 133 H (60-115) mg/dL Calcium 8.1 L D (8.4-10.2) mg/dL Magnesium 2.3 (1.6-2.6) mg/dL Total Bilirubin 0.9 (0.0-1.0) mg/dL AST 68 H (5-31) U/L ALT 32 H (0-31) U/L Alkaline Phosphatase 79 (39-117) U/L Total Protein 7.6 (6.5-8.0) g/dL Albumin 4.7 (3.5-5.0) g/dL Urine Color Yellow Urine Appearance Clear Urine pH 6.0 (5.0-9.0) Ur Specific [place] 1.010 (1.005-1.025) Urine Protein 30 (1+) H (Neg-Trace) mg/dL Urine Glucose (UA) Negative (Negative) mg/dL Urine Ketones Negative (Negative) mg/dL Urine Blood Small (1+) H (Negative) Urine Nitrite Negative (Negative) Ur Leukocyte Esterase Negative (Negative) Urine RBC 0-2 (0-2) /HPF Urine WBC 0-5 (0-5) /HPF Ur Squamous Epith Cells 0-2 (0-2) /HPF Urine Bacteria None Seen (None Seen) Hyaline Casts 0-2 (0-2) /LPF Urine Opiates Screen Not Detected (Not Detect) Ur Buprenorphine Scrn Not Detected (Not Detect) ng/mL Ur Oxycodone Screen Not Detected (Not Detect) ng/mL Urine Methadone Screen Not Detected (Not Detect) ng/mL Urine Fentanyl Screen Not Detected (Not Detect) Ur Barbiturates Screen Not Detected (Not Detect) Ur Phencyclidine Scrn Not Detected (Not Detect) Ur Amphetamines Screen Not Detected (Not Detect) U Benzodiazepines Scrn Not Detected (Not Detect) Urine Cocaine Screen Not Detected (Not Detect) U Marijuana (THC) Screen Not Detected (Not Detect) Ethyl Alcohol 302 H* mg/dL Independent Interpretation I performed an independent interpretation of an: EKG Interpretation: My independent interpretation of the ECG reveals normal sinus tachycardia with rate of 116, normal axis, normal intervals, no ST elevations or depressions to suggest ischemic changes, relatively unchanged from previous on 03/12/2022. Independent Historian Clinical information obtained from an independent historian. History obtained from or confirmed by: EMS External Record Review External record reviewed: Inpatient record Chronic Conditions Patient?s care impacted by: Other (Alcohol use disorder) Social Determinants Patient?s care significantly limited by Social Determinants of Health including: Other Social Determinant of Health Medications Administered Discontinued Medications Generic Name Dose Route Start Last Admin Trade Name Freq PRN Reason Stop Dose Admin Diazepam 5 mg 09/17/25 12:58 09/17/25 13:13 Diazepam 10 Mg/2 Ml Cartridge IVPUSH 09/17/25 12:59 5 mg STAT STA Administration Sodium Chloride 1,000 mls @ 999 mls/hr 09/17/25 13:00 09/17/25 13:13 Ns IV 09/17/25 14:00 999 mls/hr .Q1H1M DENISE Administration Ondansetron HCl 4 mg 09/17/25 12:58 09/17/25 13:13 Ondansetron Hcl 4 Mg/2 Ml Vial IVPUSH 09/17/25 12:59 4 mg ONCE ONE Administration Phenobarbital Sodium 230 mg 09/17/25 14:00 09/17/25 13:29 Phenobarbital Sodium 130 Mg/Ml Im Once IM 09/17/25 14:01 230 mg ONCE ONE Administration Protocol Critical Care Time Critical Care Time Critical Care Time: Yes Total Critical Care Time: 35 Attestation: Time is exclusive of separately billable procedures. Time includes: direct patient care, patient reassessment, coordination of patient care, interpretation of data (laboratory data, pulse oximetry, arterial blood gases and chest xrays), review of patient's medical records, medical consultation and documentation of patient care in the setting of alcohol use disorder, alcohol withdrawal requiring phenobarbital protocol. Procedures excluded from critical care time: central intravenous line placement and electrocardiography. Discharge Plan Discharge Clinical Impression: Alcohol withdrawal syndrome, Alcoholic intoxication Patient Disposition: Admitted As Inpatient Print Language: Kenyan
--- NOTE | 2025-09-17 15:21 | P.HPHOSP_ITS ---
History of Present Illness Date of Service: 09/17/25 Attending physician on admission: Navid Carpenter Chief Complaint: Alcohol withdrawal This is a 29-year-old female with a history of alcohol use disorder who presents to the emergency department with complaints of alcohol withdrawal. In the emergency department she was noted to be tremulous and tachycardic. Her alcohol level was 300. She has a history of alcohol withdrawal and withdrawal seizures in the past. She was started on phenobarbital protocol for alcohol withdrawal and admission was requested. Review of Systems 2 Review of Systems: Yes all other systems are reviewed and are negative Constitutional: Constitutional: Denies chills and Denies fever(s) ENT: Denies dizziness Cardiovascular: Cardiovascular: Denies palpitations and Denies dyspnea Respiratory: Respiratory: Denies cough and Denies dyspnea Gastrointestinal: Gastrointestinal: Denies abdominal pain Neurologic: Denies dizziness Endocrine: Endocrine: Denies palpitations [facility] Medical History No known health problems Social History Alcohol intake: current Alcohol intake frequency: 3 or more drinks per day Alcohol type: hard liquor Patient Tobacco Use Status: Current everyday Tobacco user Smoked in Last 30 Days: Yes Use of substances other than those prescribed or required for medical reasons: No Advance Directives: No Advance Directives Information Provided: Yes Nutrition Risks: No Nutritional Risk Meds Allergies Allergy/AdvReac Type Severity Reaction Status Date / Time No Known Allergies Allergy Verified 09/17/25 12:49 Active Medications: Current Medications Acetaminophen (Acetaminophen 325 Mg Tablet) 650 mg PO Q6H PRN PRN Reason: Pain, Mild 1-3,fever,headache Calcium Carbonate (Calcium Carbonate 750 Mg Tab.Chew) 750 mg PO Q4H PRN PRN Reason: Heartburn Magnesium Hydroxide (Milk Of Magnesia 30 Ml Oral.Susp) 30 ml PO DAILY PRN PRN Reason: Constipation Melatonin (Melatonin 3 Mg Tablet) 6 mg PO BEDTIME PRN PRN Reason: Insomnia Pharmacy Consult (Consult Rx Etoh Phenob Im/Po) 1 each MISCELLANE ONCE PRN; Protocol PRN Reason: Consult order Phenobarbital (Phenobarbital 30 Mg Tablet) 30 mg PO BID DENISE; Protocol Stop: 09/19/25 21:01 Phenobarbital (Phenobarbital 15 Mg Tablet) 15 mg PO BID [facility]; Protocol Stop: 09/21/25 21:01 Phenobarbital (Phenobarbital 15 Mg Tablet) 15 mg PO DAILY [facility]; Protocol Stop: 09/23/25 09:01 Phenobarbital Sodium (Phenobarbital Sodium 130 Mg/Ml Vial Im Q3hx2) 172 mg IM Q3H DENISE; Protocol Stop: 09/17/25 20:01 Sodium Chloride (0.9 % Sodium Chloride Flush 3 Ml Syringe) 3 ml IVFLUSH QSHIFT [facility] Home Medications ?Medication ?Instructions ?Recorded ?Confirmed ?Last Taken ?Type buspirone 15 mg tablet 15 mg PO BID 09/17/25 Unknown History carvedilol 6.25 mg tablet 6.25 mg PO BID 09/17/2512/11 Unknown History cyclobenzaprine 10 mg tablet 10 mg PO TID PRN MUSCLE S PASMS 09/17/25 09/17/25 Unknown History quetiapine 25 mg tablet 25 mg PO QID PRN Anxiety 12/1109/17/25 Unknown History venlafaxine 75 mg capsule,extended 75 mg PO DAILY 12/1109/17/25 Unknown History release 24 hr Physical Exam 2 Vital Signs and Narrative: Vital Signs: Last Vital Signs Temp 98.7 F 09/17/25 12:47 Pulse 128 H 09/17/25 12:47 Resp 18 09/17/25 12:47 BP 132/105 H 09/17/25 12:47 Pulse Ox 96 09/17/25 12:47 O2 Del Method Room Air 09/17/25 12:47 BMI result Body Mass Index 34.0 Const: Other: tremulous General: cooperative, alert and awake Nutritional Appearance: overweight Orientation/consciousness: patient oriented x3 Resp: Effort & Inspection: normal respiratory effort, able to speak in complete sentences, no respiratory distress and no use of accessory muscles Cardio: Rate: tachycardic GI: Inspection: No distended Palpation (GI): Soft to palpation and nontender Neuro: General: patient oriented x3, moves all extremities and CN's II-XI intact bilaterally Results Labs 09/17/25 13:04 09/17/25 13:04 Labs: Laboratory Results - last 24 hr 09/17/25 09/17/25 13:02 13:04 MCV 88.5 MCH 31.3 MCHC 35.3 H RDW 12.3 Plt Count 264 MPV 8.7 L Immature Gran % (Auto) 0.2 Neut % (Auto) 63.6 Lymph % (Auto) 27.5 [place] % (Auto) 8.1 Eos % (Auto) 0.0 Baso % (Auto) 0.6 Lymph # (Auto) 2.3 [place] # (Auto) 0.7 Eos # (Auto) 0.0 Baso # (Auto) 0.1 Abs Immat Gran (auto) 0.02 Absolute Neuts (auto) 5.2 Absolute Nucleated RBC 0.000 Nucleated RBC % (auto) 0.0 Anion Gap 18 Estim Creat Clear Calc 134.1 Estimated GFR > 60 Random Glucose 133 H Calcium 8.1 L D Magnesium 2.3 Total Bilirubin 0.9 AST 68 H ALT 32 H Alkaline Phosphatase 79 Total Protein 7.6 Albumin 4.7 Urine Color Yellow Urine Appearance Clear Urine pH 6.0 Ur Specific [place] 1.010 Urine Protein 30 (1+) H Urine Glucose (UA) Negative Urine Ketones Negative Urine Blood Small (1+) H Urine Nitrite Negative Ur Leukocyte Esterase Negative Urine RBC 0-2 Urine WBC 0-5 Ur Squamous Epith Cells 0-2 Urine Bacteria None Seen Hyaline Casts 0-2 Urine Opiates Screen Not Detected Ur Buprenorphine Scrn Not Detected Ur Oxycodone Screen Not Detected Urine Methadone Screen Not Detected Urine Fentanyl Screen Not Detected Ur Barbiturates Screen Not Detected Ur Phencyclidine Scrn Not Detected Ur Amphetamines Screen Not Detected U Benzodiazepines Scrn Not Detected Urine Cocaine Screen Not Detected U Marijuana (THC) Screen Not Detected Ethyl Alcohol 302 H* Assessment and Plan (1) Alcohol withdrawal syndrome: Status: Acute Plan This is a 29-year-old female with history of alcohol dependence who presents to the emergency department seeking detox found to have alcohol withdrawal Alcohol dependence with high risk for alcohol withdrawal Started on phenobarbital protocol in the emergency department IV hydration, thiamine/folic acid supplementation Addiction medicine consultation, patient interested in detox Anxiety Continue baseline medication Tobacco dependence Smoking cessation advised NRT DVT prophylaxis-Lovenox Patient will likely require 2 midnight stay in the hospital for management of acute alcohol withdrawal requiring IV fluid, phenobarbital, close monitoring to prevent compensation with history of severe alcohol withdrawal with seizures Quality Stroke Does the patient have a stroke diagnosis?: No VTE Prior VTE?: No VTE Risk Level:: Medical - moderate - high VTE Device Contraindication: N/A - Device Ordered VTE Drug Contraindication: N/A - Med Ordered
[2025-09-17 15:22] VITALS: BP 144/88; PULSE 123; RESP 21; O2SAT 97
[2025-09-17] MEDS: Lactated Ringers 1,000 ML 125 ML IVCONT (15:32)
[2025-09-17] MEDS: Nicotine 14 MG PATCH.TD24 TRANSDERMA (16:15)
--- NOTE | 2025-09-17 16:33 | PHA.MEDREC ---
Pharmacy Consult ? Medication Reconciliation Pharmacy has completed the medication reconciliation. Patient also stated they are typically on vivtrol but hasnt taken a dose if over 90 days
[2025-09-17] MEDS: PHENobarbitaL sodium 130 MG/ML VIAL IM Q3Hx2 172 MG IM ×2 (17:49→21:27)
[2025-09-17 18:27] VITALS: BP 151/97; PULSE 120; RESP 16; TEMP 37.1; O2SAT 96
--- NOTE | 2025-09-17 19:23 | PC.NURSE ---
Pt transitioned to hospital bed.
--- NOTE | 2025-09-17 19:35 | HO.NURTONUR ---
29 yo F coming in for ETOH withdrawal, looking for detox. Hx of withdrawals in past, last withdrawal seizure in 2020. Denies SI/HI. PIV in place x2. LR maintenance running. Alert and oriented. Ambulatory. +Multiple episodes of diarrhea, provider aware. Stool studies ordered. Vitals stable, tachycardiac 120s, sinus tach. In hospital bed.
[2025-09-17 20:35] VITALS: BMI 35.2
[2025-09-17 20:42] VITALS: BP 153/86; PULSE 128; RESP 18; TEMP 37.1; O2SAT 97
[2025-09-17] MEDS: 0.9 % Sodium Chloride Flush 3 ML SYRINGE IVFLUSH (21:37)
[2025-09-17 23:38] VITALS: BP 159/86; PULSE 100; RESP 18; TEMP 36.4; O2SAT 97
[2025-09-18] VITALS (7 sets, daily range): BP systolic 123–142; BP diastolic 60–90; PULSE 76–98; RESP 17–20; TEMP 36.1–36.7; O2SAT 93–98
--- NOTE | 2025-09-18 | ECG_ITS ---
Test Reason : chest pressure Blood Pressure : */* mmHG Vent. Rate : 94 BPM Atrial Rate : 94 BPM P-R Int : 150 ms QRS Dur : 86 ms QT Int : 376 ms P-R-T Axes : 71 54 45 degrees QTcB Int : 470 ms Normal sinus rhythm Artifact in tracing Poor R wave progression Abnormal ECG When compared with ECG of 17-Sep-2025 13:09, Poor R wave progression noted Referred By: Navid Carpenter Electronically Signed By: Angus Palma
[2025-09-18] MEDS: Lactated Ringers 1,000 ML 125 ML IVCONT ×2 (00:17→02:53)
[2025-09-18 08:10] LABS: Anion Gap 14 (12-20); Blood Urea Nitrogen 8 mg/dL (9-16); Calcium 7.7 mg/dL (8.4-10.2); Carbon Dioxide 24 mmol/L (22-29); Chloride 104 mmol/L (96-108); Creatinine Clr Calc Pharmacy 128.2; Estimated Glomerular Filt Rate > 60; Magnesium 1.7 mg/dL (1.6-2.6); Potassium 3.8 mmol/L (3.3-5.1); Sodium 138 mmol/L (135-145)
--- NOTE | 2025-09-18 09:06 | MHC.CM.PN ---
Addendum entered by Lois Hanks 09/18/25 09:20: PCP CONFIRMED: DR. MAGUE RAMAN. Original Note: THIS CM MET WITH PATIENT, SHE STATES SHE IS SELF-CARE, LIVES AT HOME WITH HER PARENTS AND FIANCE. SHE WILL ARRANGE HER OWN TRANSPORT HOME AT DISCHARGE. PATIENT STATES SHE HAS A HCP IT IS HER MOM AND FIANCE, COPY REQUESTED.
[2025-09-18] MEDS: 0.9 % Sodium Chloride Flush 3 ML SYRINGE IVFLUSH ×2 (09:45→16:49)
[2025-09-18] MEDS: Venlafaxine HCl ER 75 MG CAP.ER.24H PO (09:45)
[2025-09-18] MEDS: Nicotine 14 MG PATCH.TD24 TRANSDERMA (09:46)
--- NOTE | 2025-09-18 11:58 | HO.PM.IMPN ---
Subjective Subjective Date of Service: 09/18/25 Interval History: c/o anxiety, chest pain, dyspnea Review of Systems Review of Systems: Yes all other systems are reviewed and are negative Physical Exam Vital Signs: Vital Signs: Last Vital Signs Temp 97.0 F 09/18/25 11:50 Pulse 87 09/18/25 11:50 Resp 20 09/18/25 11:50 BP 128/82 09/18/25 11:50 Pulse Ox 98 09/18/25 11:50 O2 Del Method Room Air 09/18/25 11:50 BMI result Body Mass Index 35.2 Gen: in no acute distress HEENT: sclera anicteric, moist mucus membranes Neck: supple Lungs: clear to auscultation bilaterally Heart: regular rate and rhythm, no murmurs Abd: soft, non-tender, non-distended Ext: no edema Skin: warm/well-perfused Neuro: alert and oriented x3, no focal findings Psych: appropriate affect Objective Data Active Medications Acetaminophen (Acetaminophen 325 Mg Tablet) 650 mg PO Q6H PRN PRN Reason: Pain, Mild 1-3,fever,headache Last Admin: 09/18/25 09:48 Dose: 650 mg Documented By: CHIKI Buspirone HCl (Buspirone Hcl 5 Mg Tablet) 15 mg PO BID [facility] [place] Last Admin: 09/18/25 09:45 Dose: 15 mg Documented By: CHIKI Calcium Carbonate (Calcium Carbonate 750 Mg Tab.Chew) 750 mg PO Q4H PRN PRN Reason: Heartburn Last Admin: 09/18/25 04:38 Dose: 750 mg Documented By: EMMIE Carvedilol (Carvedilol 6.25 Mg Tablet) 6.25 mg PO BID [facility] [place]; Protocol Last Admin: 09/18/25 09:45 Dose: 6.25 mg Documented By: CHIKI Cyclobenzaprine HCl (Cyclobenzaprine Hcl 10 Mg Tablet) 10 mg PO TID PRN PRN Reason: MUSCLE SPASMS Dicyclomine HCl (Dicyclomine Hcl 10 Mg Capsule) 10 mg PO QIDACHS [facility] [place] Last Admin: 09/18/25 09:45 Dose: 10 mg Documented By: CHIKI Enoxaparin Sodium (Enoxaparin Sodium 40 Mg/0.4 Ml Syringe) 40 mg SUBCUT Q24H [facility] [place] Last Admin: 09/17/25 15:32 Dose: 40 mg Documented By: JEFF Folic Acid (Folic Acid 1 Mg Tablet) 1 mg PO DAILY [facility] Last Admin: 09/18/25 09:45 Dose: 1 mg Documented By: CHIKI Magnesium Hydroxide (Milk Of Magnesia 30 Ml Oral.Susp) 30 ml PO DAILY PRN PRN Reason: Constipation Melatonin (Melatonin 3 Mg Tablet) 6 mg PO BEDTIME PRN PRN Reason: Insomnia Last Admin: 09/18/25 01:28 EDT Dose: 6 mg Documented By: EMMIE Nicotine (Nicotine 14 Mg Patch.Td24) 14 mg TRANSDERMA DAILY [facility] [place] Last Admin: 09/18/25 09:46 Dose: 14 mg Documented By: CHIKI Ondansetron HCl (Ondansetron Hcl 4 Mg/2 Ml Vial) 4 mg IVPUSH Q8H PRN PRN Reason: Nausea and Vomiting Last Admin: 09/18/25 09:48 Dose: 4 mg Documented By: CHIKI Pharmacy Consult (Consult Rx Etoh Phenob Im/Po) 1 each MISCELLANE ONCE PRN; Protocol PRN Reason: Consult order Phenobarbital (Phenobarbital 30 Mg Tablet) 30 mg PO BID [facility] [place]; Protocol Stop: 09/19/25 21:01 Last Admin: 09/18/25 09:45 Dose: 30 mg Documented By: CHIKI Phenobarbital (Phenobarbital 15 Mg Tablet) 15 mg PO BID [facility]; Protocol Stop: 09/21/25 21:01 Phenobarbital (Phenobarbital 15 Mg Tablet) 15 mg PO DAILY [facility] [place]; Protocol Stop: 09/23/25 09:01 Quetiapine Fumarate (Quetiapine Fumarate 25 Mg Tablet) 25 mg PO QID PRN PRN Reason: Anxiety Last Admin: 09/17/25 21:29 Dose: 25 mg Documented By: EMMIE Sodium Chloride (0.9 % Sodium Chloride Flush 3 Ml Syringe) 3 ml IVFLUSH QSHIFT [facility] [place] Last Admin: 09/18/25 09:45 Dose: 3 ml Documented By: CHIKI Thiamine HCl (Thiamine Hcl 100 Mg Tablet) 100 mg PO DAILY [facility] [place] Last Admin: 09/18/25 09:45 Dose: 100 mg Documented By: CHIKI Venlafaxine HCl (Venlafaxine Hcl Er 75 Mg Cap.Er.24h) 75 mg PO DAILY [facility] Last Admin: 09/18/25 09:45 Dose: 75 mg Documented By: CHIKI Labs 09/17/25 13:04 09/18/25 06:27 Labs: Laboratory Results - last 24 hr 09/17/25 09/17/25 09/18/25 13:02 13:04 06:27 MCV 88.5 MCH 31.3 MCHC 35.3 H RDW 12.3 Plt Count 264 MPV 8.7 L Immature Gran % (Auto) 0.2 Neut % (Auto) 63.6 Lymph % (Auto) 27.5 [place] % (Auto) 8.1 Eos % (Auto) 0.0 Baso % (Auto) 0.6 Lymph # (Auto) 2.3 [place] # (Auto) 0.7 Eos # (Auto) 0.0 Baso # (Auto) 0.1 Abs Immat Gran (auto) 0.02 Absolute Neuts (auto) 5.2 Absolute Nucleated RBC 0.000 Nucleated RBC % (auto) 0.0 Hold Purple Top SEE NOTE Anion Gap 18 14 Estim Creat Clear Calc 134.1 128.2 Estimated GFR > 60 > 60 Random Glucose 133 H 84 Calcium 8.1 L D 7.7 L Magnesium 2.3 1.7 Total Bilirubin 0.9 AST 68 H ALT 32 H Alkaline Phosphatase 79 Total Protein 7.6 Albumin 4.7 Urine Color Yellow Urine Appearance Clear Urine pH 6.0 Ur Specific Dante 1.010 Urine Protein 30 (1+) H Urine Glucose (UA) Negative Urine Ketones Negative Urine Blood Small (1+) H Urine Nitrite Negative Ur Leukocyte Esterase Negative Urine RBC 0-2 Urine WBC 0-5 Ur Squamous Epith Cells 0-2 Urine Bacteria None Seen Hyaline Casts 0-2 Urine Opiates Screen Not Detected Ur Buprenorphine Scrn Not Detected Ur Oxycodone Screen Not Detected Urine Methadone Screen Not Detected Urine Fentanyl Screen Not Detected Ur Barbiturates Screen Not Detected Ur Phencyclidine Scrn Not Detected Ur Amphetamines Screen Not Detected U Benzodiazepines Scrn Not Detected Urine Cocaine Screen Not Detected U Marijuana (THC) Screen Not Detected Ethyl Alcohol 302 H* Assessment and Plan (1) Alcohol withdrawal syndrome: Status: Acute Plan d2, 29yo F with AUD and hx of withdrawal seizures, admitted for impending withdrawal atypical chest pain: EKG, CXR, D-dimer AUD with impending withdrawal: phenobarbital taper, thiamine, folate, Addiction Medicine consultation mood disorder: buspirone, venlafaxine tobacco abuse: NRT VTE ppx: enoxaparin dispo: eventual home In my clinical judgment, the patient requires continued inpatient hospitalization for the following reasons: high-risk alcohol withdrawal Total time managing care of this patient today: 35 minutes. Quality Stroke Does the patient have a stroke diagnosis?: No VTE Prior VTE?: No VTE Risk Level:: Medical - moderate - high VTE Device Contraindication: N/A - Device Ordered VTE Drug Contraindication: N/A - Med Ordered
[2025-09-18 12:46] LABS: D Dimer High Sensitivity 279 NG/ML
[2025-09-18 13:06] LABS: CDiff Gene PCR NEGATIVE (Negative)
[2025-09-18 13:12] LABS: E. coli EAEC Not Detected (Not Detect.); E. coli EPEC Not Detected (Not Detect.); E. coli ETEC Not Detected (Not Detect.); E. coli STEC Not Detected (Not Detect.); Shigella sp./EIEC Not Detected (Not Detect.)
[2025-09-18] MEDS: iohexoL 350 MG/ML 100 ML INFUS..BTL IV (15:55)
[2025-09-18] MEDS: Butalb/Acetamin/Caff 50/325/40 TABLET 1 TAB PO ×2 (16:05→22:43)
[2025-09-19 02:50] VITALS: BP 154/88; PULSE 83; RESP 18; TEMP 36.7; O2SAT 98
[2025-09-19] MEDS: diazePAM 10 MG/2 ML CARTRIDGE 7.5 MG IVPUSH (04:44)
[2025-09-19 08:00] VITALS: BP 125/60; PULSE 88; RESP 18; TEMP 36.9; O2SAT 92
[2025-09-19] MEDS: Venlafaxine HCl ER 75 MG CAP.ER.24H PO (08:45)
[2025-09-19] MEDS: 0.9 % Sodium Chloride Flush 3 ML SYRINGE IVFLUSH ×3 (08:47→20:03)
[2025-09-19] MEDS: Nicotine 14 MG PATCH.TD24 TRANSDERMA (08:47)
--- NOTE | 2025-09-19 08:55 | PC.NURSE ---
Pt alert and oriented x4. SHe reports stomach pain 9/10, which has been ongoing this admission. She is very nauseous, no vomiting, no appetite. Taking pills by mouth ok. Reports multiple loose stools this morning. Reports anxiety and poor sleep. Pt refuses phenobarb this morning. 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 Currently scoring CIWA 8.
[2025-09-19 12:00] VITALS: BP 127/87; PULSE 88; RESP 18; TEMP 36.8; O2SAT 94
--- NOTE | 2025-09-19 14:06 | HO.PM.IMPN ---
Subjective Subjective Date of Service: 09/19/25 Interval History: got extra dose of IM phenobarbital yesterday for YAIMA 16 refusing further phenobarbital, saying it makes her panicky upon wakening dyspnea resolved; c/o burning chest pain Review of Systems Review of Systems: Yes all other systems are reviewed and are negative Physical Exam Vital Signs: Vital Signs: Last Vital Signs Temp 98.2 F 09/19/25 12:00 Pulse 88 09/19/25 12:00 Resp 18 09/19/25 12:00 BP 127/87 09/19/25 12:00 Pulse Ox 94 09/19/25 12:00 O2 Del Method Room Air 09/19/25 12:00 BMI result Body Mass Index 35.2 Gen: in no acute distress HEENT: sclera anicteric, moist mucus membranes Neck: supple Lungs: clear to auscultation bilaterally Heart: regular rate and rhythm, no murmurs Abd: soft, non-tender, non-distended Ext: no edema Skin: warm/well-perfused Neuro: alert and oriented x3, no focal findings Psych: appropriate affect Objective Data Active Medications Acetaminophen (Acetaminophen 325 Mg Tablet) 650 mg PO Q6H PRN PRN Reason: Pain, Mild 1-3,fever,headache Last Admin: 09/18/25 20:08 Dose: 650 mg Documented By: EMMIE Acetaminophen/Butalbital/Caffeine (Butalb/Acetamin/Caff 50/325/40 Tablet) 1 tab PO Q4H PRN PRN Reason: Headache Last Admin: 09/18/25 22:43 Dose: 1 tab Documented By: EMMIE Buspirone HCl (Buspirone Hcl 5 Mg Tablet) 15 mg PO BID [facility] Last Admin: 09/19/25 08:42 Dose: 15 mg Documented By: KYEL Calcium Carbonate (Calcium Carbonate 750 Mg Tab.Chew) 750 mg PO Q4H PRN PRN Reason: Heartburn Last Admin: 09/18/25 04:38 Dose: 750 mg Documented By: EMMIE Carvedilol (Carvedilol 6.25 Mg Tablet) 6.25 mg PO BID [facility]; Protocol Last Admin: 09/19/25 08:46 Dose: 6.25 mg Documented By: KYLE Cyclobenzaprine HCl (Cyclobenzaprine Hcl 10 Mg Tablet) 10 mg PO TID PRN PRN Reason: MUSCLE SPASMS Dicyclomine HCl (Dicyclomine Hcl 10 Mg Capsule) 10 mg PO QIDACHS [facility] Last Admin: 09/19/25 12:48 Dose: 10 mg Documented By: KYLE Enoxaparin Sodium (Enoxaparin Sodium 40 Mg/0.4 Ml Syringe) 40 mg SUBCUT Q24H [facility] Last Admin: 09/18/25 16:05 Dose: 40 mg Documented By: CHIKI Folic Acid (Folic Acid 1 Mg Tablet) 1 mg PO DAILY [facility] Last Admin: 09/19/25 08:45 Dose: 1 mg Documented By: KYLE Lorazepam (Lorazepam 1 Mg Tablet) 1 mg PO Q6H [facility] Stop: 09/20/25 03:46 Last Admin: 09/19/25 09:58 Dose: 1 mg Documented By: KYLE Lorazepam (Lorazepam 1 Mg Tablet) 1 mg PO Q12H [facility] Stop: 09/20/25 21:46 Lorazepam (Lorazepam 0.5 Mg Tablet) 0.5 mg PO Q12H [facility] Stop: 09/21/25 21:46 Magnesium Hydroxide (Milk Of Magnesia 30 Ml Oral.Susp) 30 ml PO DAILY PRN PRN Reason: Constipation Melatonin (Melatonin 3 Mg Tablet) 6 mg PO BEDTIME PRN PRN Reason: Insomnia Last Admin: 09/18/25 01:28 EDT Dose: 6 mg Documented By: EMMIE Metoclopramide HCl (Metoclopramide Hcl 10 Mg/2 Ml Vial) 5 mg IVPUSH Q4H PRN PRN Reason: n/v unrelieved by nannette Last Admin: 09/18/25 20:09 Dose: 5 mg Documented By: EMMIE Nicotine (Nicotine 14 Mg Patch.Td24) 14 mg TRANSDERMA DAILY [facility] Last Admin: 09/19/25 08:47 Dose: 14 mg Documented By: KYLE Omeprazole (Omeprazole 20 Mg Capsule.Dr) 20 mg PO BID@0630,1630 [facility] Last Admin: 09/19/25 09:58 Dose: 20 mg Documented By: KYLE Ondansetron HCl (Ondansetron Hcl 4 Mg/2 Ml Vial) 4 mg IVPUSH Q8H PRN PRN Reason: Nausea and Vomiting Last Admin: 09/18/25 09:48 Dose: 4 mg Documented By: CHIKI Pharmacy Consult (Consult Rx Etoh Phenob Im/Po) 1 each MISCELLANE ONCE PRN; Protocol PRN Reason: Consult order Quetiapine Fumarate (Quetiapine Fumarate 25 Mg Tablet) 25 mg PO QID PRN PRN Reason: Anxiety Last Admin: 09/19/25 12:47 Dose: 25 mg Documented By: KYLE Sodium Chloride (0.9 % Sodium Chloride Flush 3 Ml Syringe) 3 ml IVFLUSH QSHIFT [facility] Last Admin: 09/19/25 08:47 Dose: 3 ml Documented By: KYLE Thiamine HCl (Thiamine Hcl 100 Mg Tablet) 100 mg PO DAILY [facility] Last Admin: 09/19/25 08:42 Dose: 100 mg Documented By: KYLE Venlafaxine HCl (Venlafaxine Hcl Er 75 Mg Cap.Er.24h) 75 mg PO DAILY [facility] Last Admin: 09/19/25 08:45 Dose: 75 mg Documented By: KYLE Labs 09/17/25 13:04 09/18/25 06:27 Labs: Laboratory Results - last 24 hr 09/18/25 11:27 Stl C. cayetanensis PCR Not Detected Stool Rotavirus A PCR Not Detected Stl Adenov F 40/41 PCR Not Detected Stool Astrovirus (PCR) Not Detected Stool Campylobacter PCR Not Detected Stool Cryptosporidium PCR Not Detected Stl Sh Tox Pr E STEC PCR Not Detected Stool E coli O157 PCR Not applicable Stl Enterotoxigenic E PCR Not Detected Stool EPEC (PCR) Not Detected Stool EAEC (PCR) Not Detected Stl E. histolytica PCR Not Detected Stool Giardia Lamblia PCR Not Detected Stl P. shigelloides PCR Not Detected Stool Salmonella PCR Not Detected Stool Sapovirus (PCR) Not Detected Stl Shigella/EIEC PCR Not Detected St Y.enterocolitica PCR Not Detected Stool Vibrio (PCR) Not Detected Stl Vibrio cholerae PCR Not Detected Stl Norovirus GI/GII PCR Not Detected Assessment and Plan (1) Alcohol withdrawal syndrome: Status: Acute Plan d3, 29yo F with AUD and hx of withdrawal seizures, admitted for impending withdrawal atypical chest pain: CT angio chest without PE, CXR normal, EKG normal; suspect due to GERD/gastritis, will give empiric PPI AUD with impending withdrawal: change phenobarbital to lorazepam taper; continue thiamine, folate, Addiction Medicine consultation as pt interested in going back on MAT mood disorder: buspirone, venlafaxine tobacco abuse: NRT VTE ppx: enoxaparin dispo: eventual home In my clinical judgment, the patient requires continued inpatient hospitalization for the following reasons: high-risk alcohol withdrawal Total time managing care of this patient today: 35 minutes. Quality Stroke Does the patient have a stroke diagnosis?: No VTE Prior VTE?: No VTE Risk Level:: Medical - moderate - high VTE Device Contraindication: N/A - Device Ordered VTE Drug Contraindication: N/A - Med Ordered
--- NOTE | 2025-09-19 15:42 | MHC.RECOVRN ---
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
--- NOTE | 2025-09-19 15:43 | MHC.RECOVRN ---
Pt declined ROMI initiation while in the hospital. Stated I have a vivitrol injection waiting for me at [facility]. I just missed my last appointment. Pt thus declining other outpatient AUD tx appoitnment at the [facility].
[2025-09-19 16:00] VITALS: BP 134/62; PULSE 96; RESP 17; TEMP 36.9; O2SAT 95
[2025-09-19 19:08] VITALS: BP 126/78; PULSE 85; RESP 16; TEMP 37.1; O2SAT 97
[2025-09-19 23:06] VITALS: BP 137/77; PULSE 82; RESP 16; TEMP 37.1; O2SAT 97
[2025-09-20 03:10] VITALS: BP 129/85; PULSE 73; RESP 16; TEMP 36.8; O2SAT 98
[2025-09-20 07:38] VITALS: BP 129/85; PULSE 86; RESP 20; TEMP 37; O2SAT 96
[2025-09-20] MEDS: Nicotine 14 MG PATCH.TD24 TRANSDERMA (09:00)
[2025-09-20] MEDS: Venlafaxine HCl ER 75 MG CAP.ER.24H PO (09:01)
[2025-09-20 09:02] VITALS: BP 129/85; PULSE 86
[2025-09-20] MEDS: 0.9 % Sodium Chloride Flush 3 ML SYRINGE IVFLUSH (09:03)
--- NOTE | 2025-09-20 10:40 | PM.DS ---
DS: Providers Provider Date of Service: 09/20/25 Date of admission: 09/17/25 15:17 Date of discharge: 09/20/25 Primary care physician: Jean Casillas DO, MD Consults: 09/17/25 15:18 Addiction Medicine Provider Routine Consulting Provider: Addiction Covering Reason for consultation: AUD with withdrawal; requesting detox Has provider been notified: No 09/18/25 09:00 Addiction Medicine Provider Routine Consulting Provider: Addiction Covering Reason for consultation: Etoh dependence. pt verbalizes need for more help DS: Diagnosis Discharge Diagnosis (1) Alcohol withdrawal syndrome: Status: Acute DS: Summary Hospital Course Hospital Course: Chief Complaint: Alcohol withdrawal This is a 29-year-old female with a history of alcohol use disorder who presents to the emergency department with complaints of alcohol withdrawal. In the emergency department she was noted to be tremulous and tachycardic. Her alcohol level was 300. She has a history of alcohol withdrawal and withdrawal seizures in the past. She was started on phenobarbital protocol for alcohol withdrawal and admission was requested. hospital course: Patient was admitted and treated with ativan aristides as she refused phenobarbital, she's presently completly assymptomatic, and has been seen by addiction medicine and given outpatient resource to help with sobriety, she's motivated to quit. Time Attestation Discharge Coordination Time (in mins): 35 Quality: Safe Use of Opioids Does Pt have an Active Cancer Diagnosis on the Problem List?: No Quality: Stroke Does the patient have a stroke diagnosis?: No Physical Exam Vital Signs: Vital Signs: Last Vital Signs Temp 98.6 F 09/20/25 07:38 Pulse 86 09/20/25 09:02 Resp 20 09/20/25 07:38 BP 129/85 09/20/25 09:02 Pulse Ox 96 09/20/25 07:38 O2 Del Method Room Air 09/20/25 07:38 BMI result Body Mass Index 35.2 General: AO X 3, no acute distress Resp: CTA bilateral CVS: S1,S2,RRR GI: +BS, NT, no distention Skin: No rash Neuro: motor grossly intact Psych: appropriate affect Discharge Plan Discharge Anticipated Discharge Date/Time: 09/20/25 10:31 Patient Disposition: Home, Self-Care Discharge Diagnosis: alcohol intoxication, alcohol withdrawal Referrals: Jean Casillas DO, MD [Primary Care Provider, Internal Medicine] - 1 Week Discharge Medications: Continued quetiapine 25 mg tablet 25 mg PO QID PRN (Reason: Anxiety) cyclobenzaprine 10 mg tablet 10 mg PO TID PRN (Reason: MUSCLE SPASMS) carvedilol 6.25 mg tablet 6.25 mg PO BID venlafaxine 75 mg capsule,extended release 24hr 75 mg PO DAILY buspirone 15 mg tablet 15 mg PO BID Discharge Orders: Discharge Order (Routine); Ordered 09/20/25 Ordered By: Azam Fernandez Diet: Advance to usual diet Activity on Discharge: As tolerated Stand Alone Forms: Patient Portal Discharge page, Work/School Release Print Language: Salvadorean Care Plan Goals: recovery from alcohol withdrawal Health Concerns: alcohol use disorder alcohol withdrawal Plan of Treatment: follow up with outpatient resources given to you Assessment: see above
--- NOTE | 2025-09-20 10:45 | MHC.CM.PN ---
Patient has been medically cleared for dc to home today, self care.
== END 2025-09-20 12:02 | disposition home or self-care (01) | DRG 775 ==
LOC: HO.ED 14:41 → HO.EDOVER 15:22 → HO.IMC 19:34 → HO.S3 09-19 15:02 → HO.IMC 09-19 15:48
PROVIDERS: Family Medicine; Admitting Provider Physician Assistant Medical; Emergency Provider Emergency Medicine; PCP Internal Medicine; Visit Provider Internal Medicine
DX: F10.239 Alcohol dependence with withdrawal, unspecified (principal); F10.229 Alcohol dependence with intoxication, unspecified; F39 Unspecified mood [affective] disorder; F17.210 Nicotine dependence, cigarettes, uncomplicated; Y90.8 Blood alcohol level of 240 mg/100 ml or more; Z71.6 Tobacco abuse counseling; Z79.899 Other long term (current) drug therapy
CPT/HCPCS: 36415; 71046; 71275; 80048; 80053; 80307; 81001; 83735; 85025; 85379; 87493; 87507; 93005; 99285; J1650; J1885; J2405; J2560; J2765; J3360; J7120; Q9967; S9485

== ENCOUNTER → 2025-09-17 12:53 | Outpatient (BNV) | payer OTHER, SELFPAY | PROVIDERS: Admitting Provider Physician Assistant Medical; Emergency Provider Emergency Medicine; PCP Internal Medicine; Visit Provider Internal Medicine | DX: R94.31 Abnormal electrocardiogram [ECG] [EKG] (principal); R07.89 Other chest pain | CPT/HCPCS: 93010 ==

== ENCOUNTER 2025-09-17 15:17 | Outpatient (BNV) | payer OTHER, SELFPAY | END 2025-09-18 10:08 | PROVIDERS: Admitting Provider Physician Assistant Medical; Emergency Provider Emergency Medicine; PCP Internal Medicine; Visit Provider Internal Medicine Cardiovascular Disease | DX: R94.31 Abnormal electrocardiogram [ECG] [EKG] (principal); R07.89 Other chest pain | CPT/HCPCS: 93010 ==

== ENCOUNTER 2025-09-17 15:17 | Outpatient (BNV) | payer OTHER, SELFPAY | END 2025-09-18 12:00 | PROVIDERS: Admitting Provider Physician Assistant Medical; Emergency Provider Emergency Medicine; PCP Internal Medicine; Visit Provider Radiology Diagnostic Radiology | DX: R07.9 Chest pain, unspecified (principal); R06.00 Dyspnea, unspecified; R79.1 Abnormal coagulation profile | CPT/HCPCS: 71046; 71275 ==

== ENCOUNTER → 2025-09-17 15:17 | Outpatient (BNV) | payer OTHER, SELFPAY | PROVIDERS: Admitting Provider Physician Assistant Medical; Emergency Provider Emergency Medicine; PCP Internal Medicine; Visit Provider Physician Assistant Medical | DX: F10.939 Alcohol use, unspecified with withdrawal, unspecified (principal) | CPT/HCPCS: 99223; 99232; 99239 ==